=== PATIENT | female | born 1965 | race Caucasian/White ===

== ENCOUNTER 2018-08-31 00:01 | Emergency (ER) | payer BC ==
[~2018-08-31] VITALS: Ht 157.5 cm; Wt 64.4 kg
[2018-08-31 00:07] VITALS: Ht 157.5 cm; Wt 64.4 kg
[2018-08-31 01:16] LABS: BASOPHIL % 0.2 % (0-2); PLATELET COUNT 323 x10^3mcL (130-400); RED CELL DISTRIBUTION WIDTH 12.4 % (11.5-14.5)
[2018-08-31 01:37] LABS: CALCIUM 9.1 mg/dL (8.5-10.1); CHLORIDE SERUM 106 mmol/L (98-107); CREATININE SERUM 0.9 mg/dL (0.6-1.0); GFR1 > 60 mL/min; GLUCOSE SERUM 126 mg/dL (74-106); POTASSIUM SERUM 3.7 mmol/L (3.5-5.1); SODIUM SERUM 143 mmol/L (136-145)
[2018-08-31 01:43] LABS: ALBUMIN 4.2 g/dL (3.4-5.0); ALKALINE PHOSPHATASE 98 U/L (46-116); ALT/SGPT 34 U/L (14-59); AST/SGOT 31 U/L (15-37); BILIRUBIN TOTAL 0.29 mg/dL (0.20-1.00)
[2018-08-31 01:44] LABS: TOTAL PROTEIN, SERUM 8.6 g/dL (6.4-8.2)
[2018-08-31 02:37] VITALS: BP 144/91
== END 2018-08-31 02:37 | disposition home or self-care (01) ==
LOC: ED 00:01
PROVIDERS: Emergency Medicine
DX: R00.2 Palpitations (principal)
CPT/HCPCS: 36415; 83880; Q0092